=== PATIENT | female | born 2000 | race Caucasian/White ===

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

== ENCOUNTER 2022-08-03 20:19 | Inpatient (IN) | payer BC, OTHER ==
[2022-08-03] MEDS ORDERED: KETOROLAC 15 MG/ML 1 ML VIAL IVP STA (21:40)
[2022-08-03] MEDS ORDERED: METOCLOPRAMIDE 5 MG/ML 2 ML VIAL IVP STA (21:40)
[2022-08-03] MEDS ORDERED: PANTOPRAZOLE 40 MG/10 ML VIAL IVP STA (21:40)
[2022-08-03] MEDS ORDERED: SODIUM CHLORIDE 0.9% 1,000 ML IV STA ×3 (21:40→22:52)
--- NOTE | 2022-08-03 22:12 | ED ---
General Adult HPI - General Chief complaint: Abdominal Pain Stated complaint: Abd Pain, Nausea Time Seen by Provider: 08/03/22 21:35 Source: patient, RN notes reviewed, old records reviewed Mode of arrival: ambulatory Limitations: no limitations - History of Present Illness Initial comments: Patient is a 22-year-old female who presents emergency Department over concern for abdominal pain. She is also noticed some chills. Endorses nausea but no emesis or diarrhea. Denies constipation. Denies any urinary complaints. Denies any vaginal discharge or bleeding. Denies any chest pain, shortness of breath. Denies any coughing, nasal congestion, sore throat. States last time she had these symptoms, she had a partial small bowel obstruction which she was admitted to the hospital for which is why she presents today for further evaluation. Denies any history of abdominal surgeries. Presents for further evaluation at this time. Describes the pain as sharp, and located epigastrically and somewhat periumbilically. Intermittent. No radiation. No history of alcohol abuse, marijuana abuse. - Related Data Previous Rx's Medication Instructions Recorded Ondansetron [Zofran] 4 mg PO Q8HR PRN #5 tab 11/25/13 Ondansetron Odt [Zofran Odt] 4 mg PO Q8HR PRN #12 tab 11/19/17 Allergies Allergy/AdvReac Type Severity Reaction Status Date / Time No Known Allergies Allergy Verified 08/03/22 21:19 Review of Systems ROS Statement: Those systems with pertinent positive or pertinent negative responses have been documented in the HPI. Review of Systems: CONST: Denies fever EYES: Denies blurry vision ENT: Denies nasal congestion C/V: Denies Chest pain RESP: Denies shortness of breath GI: Endorses abdominal pain : Denies dysuria SKIN: Denies rash. MSK: Denies joint pain. NEURO: Denies headache ROS Other: All systems not noted in ROS Statement are negative. Past Medical History Past Medical History: No Reported History History of Any Multi-Drug Resistant Organisms: None Reported Past Surgical History: No Surgical Hx Reported Past Psychological History: Depression Smoking Status: Never smoker Past Alcohol Use History: None Reported Past Drug Use History: None Reported General Exam - General Exam Comments Initial Comments: General: Appears in mild discomfort. HEAD: Normal with no signs of head trauma. EYES: PERRLA, EOMI, conjunctiva normal, no discharge. ENT: Hearing grossly intact, normal oropharynx. RESPIRATORY: Clear breath sounds bilaterally. No wheezes, rales, or rhonchi. C/V: Regular rate and rhythm. S1 and S2 auscultated, peripheral pulses 2+ and intact throughout ABD: Abdomen is soft, nondistended. Minimally tender to palpation in the epigastric region. No guarding. No rebound tenderness. No peritoneal signs. No flank pain. No CVA tenderness to percussion. EXT: Normal range of motion, no obvious deformity SKIN: No rashes or lesions observed on exposed skin. NEURO: Alert and oriented 4. Limitations: no limitations Course Vital Signs 08/03/22 08/04/22 08/04/22 21:15 01:00 04:34 Temperature 98.5 F 97.9 F Pulse Rate 134 H 102 H 99 Respiratory 20 16 16 Rate Blood Pressure 131/83 134/87 129/82 O2 Sat by Pulse 96 97 99 Oximetry Procedures - Sepsis Sepsis Focused Exam #1 Time Sepsis Criteria Met: 22:50 Sepsis Focused Exam Date: 08/04/22 Sepsis Focused Exam Time: 02:30 Sepsis Focused Exam Complete: Yes Vital Signs & RN Notes Reviewed: Yes Capillary Refill: > 2 Seconds: Fingers, Toes Peripheral Pulses: Normal: Radial (R), Radial (L) Skin Color: Normal for Patient Respiratory Exam: normal lung sounds Cardiovascular Exam: regular rate, normal rhythm Medical Decision Making - Medical Decision Making Was pt. sent in by a medical professional or institution (, PA, STRADDLE TRUCK DRIVER, urgent care, hospital, or [facility]...) When possible be specific @ -No Did you speak to anyone other than the patient for history (EMS, parent, family, police, friend...)? What history was obtained from this source @ -No Did you review nursing and triage notes (agree or disagree)? Why? @ -I reviewed and agree with nursing and triage notes Were old charts reviewed (outside hosp., previous admission, EMS record, old EKG, old radiological studies, urgent care reports/EKG's, [facility] records)? Report findings @ -No old charts were reviewed Differential Diagnosis (chest pain, altered mental status, abdominal pain women, abdominal pain men, vaginal bleeding, weakness, fever, dyspnea, syncope, headache, dizziness, GI bleed, back pain, seizure, CVA, palpatations, mental health, musculoskeletal)? @ -Differential Abdominal Pain Women: Appendicitis, Cholecystitis, diverticulosis, ischemic bowel, pancreatitis, hepatitis, UTI, gastroenteritis, AAA, incarcerated hernia, bowel obstruction, constipation, inflammatory bowel, hepatitis, peptic ulcer disease, splenic infarction, perforated viscus, vulvitis, ovarian torsion, PID, kidney stone, placenta abruption, this is not meant to be an all-inclusive list EKG interpreted by me (3pts min.). @ -None done X-rays interpreted by me (1pt min.). @ -None done CT interpreted by me (1pt min.). @ -CT imaging shows enteritis but no other obvious process. U/S interpreted by me (1pt. min.). @ -None done What testing was considered but not performed or refused? (CT, X-rays, U/S, labs)? Why? @ -None What meds were considered but not given or refused? Why? @ -None Did you discuss the management of the patient with other professionals (professionals i.e. , PA, STRADDLE TRUCK DRIVER, lab, RT, psych nurse, psychosocial rehabilitation counselor, reeling and tubing machine operator, teacher, parole hearing officer, child welfare caseworker)? Give summary @ -Discussed with Dr. Lama who accepted the patient. Requested I consult Dr. Samuels of infectious disease. Was smoking cessation discussed for >3mins.? @ -No Was critical care preformed (if so, how long)? @ -Yes, 37 minutes. Were there social determinants of health that impacted care today? How? (Homelessness, low income, unemployed, alcoholism, drug addiction, transportation, low edu. Level, literacy, decrease access to med. care, [facility], rehab)? @ -No Was there de-escalation of care discussed even if they declined (Discuss DNR or withdrawal of care, Hospice)? DNR status @ -No What co-morbidities impacted this encounter? (DM, HTN, Smoking, COPD, CAD, Cancer, CVA, ARF, Chemo, Hep., AIDS, mental health diagnosis, sleep apnea, morbid obesity)? @ -History of partial small bowel obstruction Was patient admitted / discharged? Hospital course, mention meds given and route, prescriptions, significant lab abnormalities, going to OR and other pertinent info. @ -Based on the patient's presentation and physical exam, we will obtain abdominal laboratory studies as well as CT abdomen and pelvis considering her history of partial small bowel obstruction. She was in agreement this plan. She'll be symptomatically treated with IV fluids, Toradol, Reglan, Protonix. Vital signs within acceptable limits. Patient's imaging returned remarkable for enteritis. Patient's labs show a leukocytosis of 18.2. Patient has a lactic acidosis of 5.2. Remainder of the labs are within acceptable limits. No obvious source of infection. Blood cultures will be obtained and sent. Patient met sepsis criteria at 2250. Vanc omycin and Zosyn were ordered for the patient and she was given an additional 1 L fluid bolus as well as started on maintenance fluids at 1:30 an hour. I spoke with the patient and updated her on the results. She will be admitted. She was in agreement with the plan. Vital signs remained within acceptable limits. I spoke with Dr. Lama, who accepted the admission. Requested a consult be placed to Dr. Samuels which was completed. Undiagnosed new problem with uncertain prognosis? @ -No Drug Therapy requiring intensive monitoring for toxicity (Heparin, Nitro, Insulin, Cardizem)? @ -No Were any procedures done? @ -No Diagnosis/symptom? @ -Abdominal pain, sepsis, enteritis Acute, or Chronic, or Acute on Chronic? @ -Acute Uncomplicated (without systemic symptoms) or Complicated (systemic symptoms)? @ -Complicated Side effects of treatment? @ -none Exacerbation, Progression, or Severe Exacerbation] @ -no Poses a threat to life or bodily function? @ -yes - Lab Data Result diagrams: 08/03/22 22:12 08/03/22 22:12 Lab Results 08/03/22 08/03/22 08/03/22 Range/Units 22:12 22:12 22:12 WBC 18.2 H (4.0-11.0) k/uL RBC 5.07 (3.80-5.40) m/uL Hgb 14.3 (11.4-16.0) gm/dL Hct 44.4 (34.0-46.0) % MCV 87.7 (80.0-100.0) fL MCH 28.3 (25.0-35.0) pg MCHC 32.3 (31.0-37.0) g/dL RDW 13.6 (11.5-15.5) % Plt Count 406 (150-450) k/uL MPV 7.0 Neutrophils % 86 % Lymphocytes % 9 % Monocytes % 4 % Eosinophils % 0 % Basophils % 0 % Neutrophils # 15.7 H (1.3-7.7) k/uL Lymphocytes # 1.6 (1.0-4.8) k/uL Monocytes # 0.7 (0-1.0) k/uL Eosinophils # 0.1 (0-0.7) k/uL Basophils # 0.0 (0-0.2) k/uL PT 10.0 (9.0-12.0) sec INR 0.9 (<1.2) APTT 20.5 L (22.0-30.0) sec Sodium (137-145) mmol/L Potassium (3.5-5.1) mmol/L Chloride (98-107) mmol/L Carbon Dioxide (22-30) mmol/L Anion Gap mmol/L BUN (7-17) mg/dL Creatinine (0.52-1.04) mg/dL Est GFR (CKD-EPI)AfAm (>60 ml/min/1.73 sqM) Est GFR (CKD-EPI)NonAf (>60 ml/min/1.73 sqM) Glucose (74-99) mg/dL Lactic Ac Sepsis Rflx Plasma Lactic Acid David (0.7-2.0) mmol/L Calcium (8.4-10.2) mg/dL Total Bilirubin (0.2-1.3) mg/dL AST (14-36) U/L ALT (4-34) U/L Alkaline Phosphatase (38-126) U/L Total Protein (6.3-8.2) g/dL Albumin (3.5-5.0) g/dL Amylase (30-110) U/L Lipase (23-300) U/L HCG, Qual Urine Color Yellow Urine Appearance Clear (Clear) Urine pH 5.5 (5.0-8.0) Ur Specific Lantry 1.024 (1.001-1.035) Urine Protein Negative (Negative) Urine Glucose (UA) Negative (Negative) Urine Ketones 1+ H (Negative) Urine Blood Small H (Negative) Urine Nitrite Negative (Negative) Urine Bilirubin Negative (Negative) Urine Urobilinogen <2.0 (<2.0) mg/dL Ur Leukocyte Esterase Negative (Negative) Urine RBC 1 (0-5) /hpf Urine WBC 1 (0-5) /hpf Ur Squamous Epith Cells 1 (0-4) /hpf Urine Bacteria Rare H (None) /hpf Hyaline Casts 1 (0-2) /lpf Urine Mucus Occasional H (None) /hpf 08/03/22 08/03/22 08/03/22 Range/Units 22:12 22:12 22:43 WBC (4.0-11.0) k/uL RBC (3.80-5.40) m/uL Hgb (11.4-16.0) gm/dL Hct (34.0-46.0) % MCV (80.0-100.0) fL MCH (25.0-35.0) pg MCHC (31.0-37.0) g/dL RDW (11.5-15.5) % Plt Count (150-450) k/uL MPV Neutrophils % % Lymphocytes % % Monocytes % % Eosinophils % % Basophils % % Neutrophils # (1.3-7.7) k/uL Lymphocytes # (1.0-4.8) k/uL Monocytes # (0-1.0) k/uL Eosinophils # (0-0.7) k/uL Basophils # (0-0.2) k/uL PT (9.0-12.0) sec INR (<1.2) APTT (22.0-30.0) sec Sodium 140 (137-145) mmol/L Potassium 3.8 (3.5-5.1) mmol/L Chloride 102 (98-107) mmol/L Carbon Dioxide 19 L (22-30) mmol/L Anion Gap 19 mmol/L BUN 10 (7-17) mg/dL Creatinine 0.65 (0.52-1.04) mg/dL Est GFR (CKD-EPI)AfAm >90 (>60 ml/min/1.73 sqM) Est GFR (CKD-EPI)NonAf >90 (>60 ml/min/1.73 sqM) Glucose 108 H (74-99) mg/dL Lactic Ac Sepsis Rflx Y Plasma Lactic Acid David 5.2 H* (0.7-2.0) mmol/L Calcium 10.1 (8.4-10.2) mg/dL Total Bilirubin 0.4 (0.2-1.3) mg/dL AST 32 (14-36) U/L ALT 37 H (4-34) U/L Alkaline Phosphatase 129 H (38-126) U/L Total Protein 8.0 (6.3-8.2) g/dL Albumin 4.6 (3.5-5.0) g/dL Amylase 46 (30-110) U/L Lipase 67 (23-300) U/L HCG, Qual Not Detected Urine Color Urine Appearance (Clear) Urine pH (5.0-8.0) Ur Specific Lantry (1.001-1.035) Urine Protein (Negative) Urine Glucose (UA) (Negative) Urine Ketones (Negative) Urine Blood (Negative) Urine Nitrite (Negative) Urine Bilirubin (Negative) Urine Urobilinogen (<2.0) mg/dL Ur Leukocyte Esterase (Negative) Urine RBC (0-5) /hpf Urine WBC (0-5) /hpf Ur Squamous Epith Cells (0-4) /hpf Urine Bacteria (None) /hpf Hyaline Casts (0-2) /lpf Urine Mucus (None) /hpf Disposition Clinical Impression: Sepsis, Enteritis, Abdominal pain Disposition: ADMITTED IP TO THIS HOSP Condition: Serious Time of Disposition: 23:50
[2022-08-03 22:25] LABS: Basophils % (A) 0 %; Eosinophils # (A) 0.1 k/uL (0-0.7); Eosinophils % (A) 0 %; HCT 44.4 % (34.0-46.0); HGB 14.3 gm/dL (11.4-16.0); Lymphocytes # (A) 1.6 k/uL (1.0-4.8); Lymphocytes % (A) 9 %; MCH 28.3 pg (25.0-35.0); MCHC 32.3 g/dL (31.0-37.0); MCV 87.7 fL (80.0-100.0); Monocytes # (A) 0.7 k/uL (0-1.0); Monocytes % (A) 4 %; Neutrophils # (A) 15.7 k/uL (1.3-7.7); Neutrophils % (A) 86 %; Platelet Count 406 k/uL (150-450); RBC 5.07 m/uL (3.80-5.40); RDW 13.6 % (11.5-15.5); WBC 18.2 k/uL (4.0-11.0)
[2022-08-03 22:37] LABS: AST 32 U/L (14-36); African American GFR (CKD) >90 (>60 ml/min/1.73 sqM); Albumin 4.6 g/dL (3.5-5.0); Alkaline Phosphatase 129 U/L (38-126); Amylase 46 U/L (30-110); Anion Gap 19 mmol/L; Appearance,Urine Clear (Clear); Bacteria,Urine Rare /hpf; Bilirubin,Urine Negative (Negative); Blood Urea Nitrogen 10 mg/dL (7-17); Blood,Urine Small (Negative); Calcium 10.1 mg/dL (8.4-10.2); Carbon Dioxide 19 mmol/L (22-30); Chloride 102 mmol/L (98-107); Color,Urine Yellow; Glucose 108 mg/dL (74-99); Glucose,Urine (UA) Negative (Negative); Hyaline Casts,Urine 1 /lpf (0-2); Ketones,Urine 1+ (Negative); Leukocyte Esterase,Urine Negative (Negative); Lipase 67 U/L (23-300); Mucus,Urine Occasional /hpf; Nitrite,Urine Negative (Negative); Non-African American GFR(CKD) >90 (>60 ml/min/1.73 sqM); PH, Urine 5.5 (5.0-8.0); Potassium 3.8 mmol/L (3.5-5.1); Protein,Urine Negative (Negative); RBC,Urine 1 /hpf (0-5); Sodium 140 mmol/L (137-145); Specific Gravity,Urine 1.024 (1.001-1.035); Squamous Epithelial Cell,Urine 1 /hpf (0-4); Total Bilirubin 0.4 mg/dL (0.2-1.3); Urobilinogen,Urine <2.0 mg/dL (<2.0); WBC,Urine 1 /hpf (0-5)
[2022-08-03 22:38] LABS: HCG,Qualitative Serum Not Detected
[2022-08-03 22:39] LABS: INR 0.9 (<1.2)
[2022-08-03 22:41] LABS: Partial Thromboplastin Time 20.5 sec (22.0-30.0)
[2022-08-03 22:44] LABS: ALT 37 U/L (4-34)
[2022-08-03] MEDS ORDERED: VANCOMYCIN IV PER PHARMACY 1 EACH MISC MISCELLANE PRN (22:52)
[2022-08-03] MEDS ORDERED: PIPERACILLIN-TAZOBACTAM 3.375 GM in SODIUM CHLORIDE 0.9% 100 ML IVPB STA (22:54)
[2022-08-03] MEDS ORDERED: VANCOMYCIN 1,750 MG in SODIUM CHLORIDE 0.9% 500 ML 500 ML IVPB STA (22:57)
--- NOTE | 2022-08-03 23:49 | CT ---
EXAMINATION TYPE: CT angio abdomen pelvis CT DLP: 1824.3 mGycm, Automated exposure control for dose reduction was used. DATE OF EXAM: 08/03/2022 11:25 PM COMPARISON: None. . CLINICAL INDICATION:Female, 22 years old with history of eval for ischemic bowel/abd pain; H, EVAL FOR ISCHEMIC BOWEL/ABD PAIN TECHNIQUE: Multiple thin slice sub-millimeter images were obtained through the abdomen, pelvis, and l ower extremities after administration of contrast. 3-D reconstructed images and maximum intensity pr ojection images were obtained of the abdomen, pelvis, and lower extremities. CT Contrast: Contrast used:100ML mL of Isovue 370 with IV Contrast, Oral contrast used: without Oral Contrast None FINDINGS: CTA Abdomen and pelvis: The abdominal aorta does not demonstrate aneurysmal dilatation. The origins of the superior mesenteric artery, renal arteries, inferior mesenteric artery, and celiac axis are pa tent. The iliac vessels are normal in morphology. No intramural hematoma on noncontrast imaging. Sup erior mesenteric artery extending to an area of bowel wall thickening mentioned below appears patent. No portal venous gas visualized. LOWER CHEST: No evidence of focal consolidation, pneumothorax or pleural effusion. LIVER: Unremarkable GALLBLADDER AND BILE DUCTS: Unremarkable. PANCREAS: Unremarkable. SPLEEN: Unremarkable. ADRENAL GLANDS: Unremarkable. KIDNEYS AND URETERS: No evidence of hydronephrosis or renal calculus. The ureters are unremarkable. PELVIS BLADDER: Unremarkable REPRODUCTIVE: Unremarkable. ABDOMEN & PELVIS STOMACH AND BOWEL: Mild engorgement of the small bowel mesentery vessels with somewhat thickened appe arance of the small bowel gil. Prominent mesenteric lymph nodes are also present. The vascular supp ly to the vessels appears patent. There is no evidence of pneumatosis. There is a large stool burden throughout the sigmoid colon. No evidence of bowel obstruction. The appendix is visualized and normal . PERITONEUM: Trace fluid is seen within the pelvis, no evidence of pneumoperitoneum. MUSCULOSKELETAL: No acute osseous abnormalities LYMPH NODES: No gross evidence for lymphadenopathy. SOFT TISSUE/ABDOMINAL WALL: Unremarkable IMPRESSION 1. There is mild circumferential wall thickening and hyperemia of the small bowel No evidence of obs truction. Correlate for enteritis. No evidence for pneumatosis or portal venous gas to suggest ischem ic colitis. 2. No evidence for aortic dissection or aneurysm,
[2022-08-04] MEDS ORDERED: NALOXONE 0.4 MG/ML 1 ML VIAL IV PRN (00:12)
[2022-08-04] MEDS ORDERED: ONDANSETRON 4 MG/2 ML VIAL IVP PRN (00:14)
[2022-08-04] MEDS ORDERED: VANCOMYCIN 1,750 MG in SODIUM CHLORIDE 0.9% 500 ML 500 ML IVPB SCH (08:00)
[2022-08-04] MEDS: PIPERACILLIN-TAZOBACTAM 3.375 GM in SODIUM CHLORIDE 0.9% 100 ML IVPB SCH ×2 (08:56→16:27)
[2022-08-04] MEDS: SODIUM CHLORIDE 0.9% 1,000 ML IV SCH ×3 (08:57→20:36)
[2022-08-04] MEDS: HEPARIN SODIUM,PORCINE/PF 5,000 UNIT/0.5 ML SYRINGE SQ SCH ×3 (08:57→20:39)
--- NOTE | 2022-08-04 13:31 | P.CONS ---
History of Present Illness - Reason for Consult Consult date: 08/04/22 - History of Present Illness Patient is a 22-year-old female with no significant past medical history presenting to the ER last night for evaluation of abdominal pain the patient the patient symptoms started the morning of presentation the hospital has been mostly epigastric area describing it to be sharp almost 7- 8 out of 10 no radiation felt nauseated but no vomiting and denies having any diarrhea patient mention she did have some chills denies high-grade fever with the same to the patient present to the hospital on arrival to the ER patient was afebrile and no fever has been recorded subsequently patient did have elevated lactic acid 2.8 white count was 18.2 patient did have elevated lactic acid 2.8 white count was 18.2 AST was mildly elevated creatinine was normal patient did patient did have a abdominal pelvis CTA mild circumferential wall thickening and hyperemia of the small bowel no evidence of obstruction correlate for enteritis patient was started on vancomycin and Zosyn infectious diseases was consulted for further management of antibiotic therapy Past Medical History Past Medical History: No Reported History History of Any Multi-Drug Resistant Organisms: None Reported Past Surgical History: No Surgical Hx Reported Past Psychological History: Depression Smoking Status: Never smoker Past Alcohol Use History: None Reported Past Drug Use History: None Reported Medications and Allergies Home Medications Medication Instructions Recorded Confirmed Type Escitalopram [Lexapro] 20 mg PO HS 08/04/22 08/04/22 History Linette Fe 03/19 1 tab PO HS 08/04/22 08/04/22 History Prazosin HCl 2 mg PO HS 08/04/22 08/04/22 History QUEtiapine [SEROquel] 200 mg PO HS 08/04/22 08/04/22 History Allergies Allergy/AdvReac Type Severity Reaction Status Date / Time No Known Allergies Allergy Verified 08/04/22 06:53 Physical Exam Vitals: Vital Signs Temp Pulse Pulse Resp BP BP Pulse Ox 08/04/22 08:05 97.8 F 101 H 16 118/80 99 08/04/22 07:50 96 18 114/73 98 08/04/22 06:26 98.3 F 101 H 16 110/74 100 08/04/22 04:34 99 16 129/82 99 08/04/22 01:00 97.9 F 102 H 16 134/87 97 08/03/22 21:15 98.5 F 134 H 20 131/83 96 Intake and Output 08/03/22 08/04/22 08/04/22 22:59 06:59 14:59 Other: Weight 108.862 kg 108.862 kg Results CBC & Chem 7: 08/03/22 22:12 08/03/22 22:12 Labs: Abnormal Lab Results - Last 24 Hours (Table) 08/03/22 08/03/22 08/03/22 Range/Units 22:12 22:12 22:12 WBC 18.2 H (4.0-11.0) k/uL Neutrophils # 15.7 H (1.3-7.7) k/uL APTT 20.5 L (22.0-30.0) sec Carbon Dioxide (22-30) mmol/L Glucose (74-99) mg/dL Plasma Lactic Acid David (0.7-2.0) mmol/L ALT (4-34) U/L Alkaline Phosphatase (38-126) U/L Urine Ketones 1+ H (Negative) Urine Blood Small H (Negative) Urine Bacteria Rare H (None) /hpf Urine Mucus Occasional H (None) /hpf 08/03/22 08/03/22 08/04/22 Range/Units 22:12 22:12 01:40 WBC (4.0-11.0) k/uL Neutrophils # (1.3-7.7) k/uL APTT (22.0-30.0) sec Carbon Dioxide 19 L (22-30) mmol/L Glucose 108 H (74-99) mg/dL Plasma Lactic Acid David 5.2 H* 3.1 H* (0.7-2.0) mmol/L ALT 37 H (4-34) U/L Alkaline Phosphatase 129 H (38-126) U/L Urine Ketones (Negative) Urine Blood (Negative) Urine Bacteria (None) /hpf Urine Mucus (None) /hpf 08/04/22 08/04/22 Range/Units 05:02 07:40 WBC (4.0-11.0) k/uL Neutrophils # (1.3-7.7) k/uL APTT (22.0-30.0) sec Carbon Dioxide (22-30) mmol/L Glucose (74-99) mg/dL Plasma Lactic Acid David 2.8 H* 2.2 H* (0.7-2.0) mmol/L ALT (4-34) U/L Alkaline Phosphatase (38-126) U/L Urine Ketones (Negative) Urine Blood (Negative) Urine Bacteria (None) /hpf Urine Mucus (None) /hpf Assessment and Plan Plan: 1patient is in the hospital with abdominal pain and nausea but no vomiting patient did not have any fever however did have elevated lactic acid and elevated white count CT abdominal pelvis concern for possible enteritis, we'll need to cover for the enteric gram-negative with a likely pathogen 2continue Zosyn however discontinue vancomycin 3-stool culture if the patient has any loose stools We will follow on clinical condition and cultures to further adjust medication if needed Thank you for this consultation will follow this patient with you Time with Patient: Greater than 30
--- NOTE | 2022-08-04 14:31 | HP ---
HISTORY AND PHYSICAL HISTORY OF PRESENT ILLNESS: This is a 22-year-old white female who came to the ER for abdominal pain, presenting, mostly epigastric 09/06. She has some colitis on CAT scan. She was admitted due to lactic acidosis and white count was 18.2, elevated creatinine for prerenal azotemia. CT was reviewed. Home medications reviewed. REVIEW OF SYSTEMS: A 14-point review of systems otherwise negative. PAST PSYCHIATRIC HISTORY: Depression. MEDICATIONS AT HOME: 1. Lexapro 20 daily. 2. Prazosin 2 mg at night. 3. daily. 4. Seroquel 200 at night. ALLERGIES: Negative. PHYSICAL EXAMINATION: VITAL SIGNS: Temperature 98.4, pulse is in low 100s, blood pressure 110 to 130s over 70s to 80s, respiratory rate 16 to 20, and blood pressure 99/100. CARDIOVASCULAR: S1, S2. LUNGS: Clear. GI: Soft. Mild tenderness in epigastric area. HEMATOLOGY: Negative Homans. PSYCH: Fair mood and affect. NEUROLOGIC: Alert and oriented x3. CAT scan reviewed. ASSESSMENT: Leukocytosis, lactic acidosis, possible colitis, possible enteritis versus colitis, gram-negative with leukocytosis. Start Zosyn. Wait for cultures to come back of the stools. Get surgical consult for abdominal pain. PROGNOSIS: Extremely guarded. MMODL / IJN: [id number] /
[2022-08-04] MEDS: ACETAMINOPHEN TAB 325 MG TAB PO PRN (15:13)
--- NOTE | 2022-08-04 15:39 | P.GSCN ---
History of Present Illness Consult date: 08/04/22 History of present illness: CHIEF COMPLAINT: Abdominal pain HISTORY OF PRESENT ILLNESS: This is a 22-year-old female who presented to the hospital with upper abdominal pain with nausea that started yesterday morning. She reports having similar symptoms a couple months ago and a year ago. She reports she was at [facility] for short period of time. She denies any diarrhea or constipation. Denies any recent traveling or sick contacts. Denies any fever chills or sweats. She has been able to eat. She denies any prior abdominal surgeries. She did have elevated white count lactic acid she's been tachycardic and hypotensive. She's given fluids and started on antibiotics. She is followed by infectious disease. Computed tomography scan had shown mild circumferential wall thickening and hyperemia of the small bowel. No evidence of obstruction. Correlate for enteritis. She denies any urinary symptoms. Denies any vaginal discharge. PAST MEDICAL HISTORY: See below PAST SURGICAL HISTORY: See below MEDICATIONS: See below ALLERGIES: See below SOCIAL HISTORY: No illicit drug use. REVIEW OF SYSTEMS: CONSTITUTIONAL: Denies fever or chills. HEENT: Denies blurred vision, vision changes, or eye pain. Denies hemoptysis CARDIOVASCULAR: Denies chest pain or pressure. RESPIRATORY: No shortness of breath. GASTROINTESTINAL: See HPI for pertinent findings HEMATOLOGIC: Denies bleeding disorders. GENITOURINARY: Denies any blood in urine or increased urinary frequency. SKIN: Denies pruitis. Denies rash. PHYSICAL EXAM: VITAL SIGNS: Reviewed GENERAL: Well-developed in no acute distress. HEENT: No sclera icterus. Extraocular movements grossly intact. Moist buccal mucosa. Head is atraumatic, normocephalic. No nasal drainage. ABDOMEN: Soft. Nondistended. Tenderness to palpation of mid upper abdomen NEUROLOGIC: Alert and oriented. Cranial nerves II through XII grossly intact. LABORATORY DATA: WBC 18.2 Hgb 14.3 platelets 406 Sodium is 140 potassium 3.8 creatinine 0.65 Lactic acid 5.2 down to 1.3 AST 32 ALT 37 alk phos 129 lipase 67 Urinalysis negative for infection IMAGING: Abdomen and pelvis CT as stated above ASSESSMENT: 1. Abdominal pain and nausea likely due to a gastroenteritis PLAN: -Continue to monitor -No surgical intervention planned -Continue antibiotics per infectious disease -Continue IV fluids -Continue regular diet Thank you for this consultation Physician Die Out Worker note has been reviewed by physician. Signing provider agrees with the documented findings, assessment, and plan of care. Past Medical History Past Medical History: No Reported History History of Any Multi-Drug Resistant Organisms: None Reported Past Surgical History: No Surgical Hx Reported Past Psychological History: Depression Smoking Status: Never smoker Past Alcohol Use History: None Reported Past Drug Use History: None Reported Medications and Allergies Home Medications Medication Instructions Recorded Confirmed Type Escitalopram [Lexapro] 20 mg PO HS 08/04/22 08/04/22 History Linette Fe 03/19 1 tab PO 08/04/22 08/04/22 History Prazosin HCl 2 mg PO HS 08/04/22 08/04/22 History QUEtiapine [SEROquel] 200 mg PO HS 08/04/22 08/04/22 History Allergies Allergy/AdvReac Type Severity Reaction Status Date / Time No Known Allergies Allergy Verified 08/04/22 06:53 Surgical - Exam Vital Signs Temp Pulse Resp BP Pulse Ox 98.5 F 134 H 20 131/83 96 08/03/22 21:15 08/03/22 21:15 08/03/22 21:15 08/03/22 21:15 08/03/22 21:15 Results - Labs 08/03/22 22:12 08/03/22 22:12 Abnormal Lab Results - Last 24 Hours (Table) 08/03/22 08/03/22 08/03/22 Range/Units 22:12 22:12 22:12 WBC 18.2 H (4.0-11.0) k/uL Neutrophils # 15.7 H (1.3-7.7) k/uL APTT 20.5 L (22.0-30.0) sec Carbon Dioxide (22-30) mmol/L Glucose (74-99) mg/dL Plasma Lactic Acid David (0.7-2.0) mmol/L ALT (4-34) U/L Alkaline Phosphatase (38-126) U/L Urine Ketones 1+ H (Negative) Urine Blood Small H (Negative) Urine Bacteria Rare H (None) /hpf Urine Mucus Occasional H (None) /hpf 08/03/22 08/03/22 08/04/22 Range/Units 22:12 22:12 01:40 WBC (4.0-11.0) k/uL Neutrophils # (1.3-7.7) k/uL APTT (22.0-30.0) sec Carbon Dioxide 19 L (22-30) mmol/L Glucose 108 H (74-99) mg/dL Plasma Lactic Acid David 5.2 H* 3.1 H* (0.7-2.0) mmol/L ALT 37 H (4-34) U/L Alkaline Phosphatase 129 H (38-126) U/L Urine Ketones (Negative) Urine Blood (Negative) Urine Bacteria (None) /hpf Urine Mucus (None) /hpf 08/04/22 08/04/22 Range/Units 05:02 07:40 WBC (4.0-11.0) k/uL Neutrophils # (1.3-7.7) k/uL APTT (22.0-30.0) sec Carbon Dioxide (22-30) mmol/L Glucose (74-99) mg/dL Plasma Lactic Acid David 2.8 H* 2.2 H* (0.7-2.0) mmol/L ALT (4-34) U/L Alkaline Phosphatase (38-126) U/L Urine Ketones (Negative) Urine Blood (Negative) Urine Bacteria (None) /hpf Urine Mucus (None) /hpf Diabetes panel 08/03/22 Range/Units 22:12 Sodium 140 (137-145) mmol/L Potassium 3.8 (3.5-5.1) mmol/L Chloride 102 (98-107) mmol/L Carbon Dioxide 19 L (22-30) mmol/L BUN 10 (7-17) mg/dL Creatinine 0.65 (0.52-1.04) mg/dL Glucose 108 H (74-99) mg/dL Calcium 10.1 (8.4-10.2) mg/dL AST 32 (14-36) U/L ALT 37 H (4-34) U/L Alkaline Phosphatase 129 H (38-126) U/L Total Protein 8.0 (6.3-8.2) g/dL Albumin 4.6 (3.5-5.0) g/dL Calcium panel 08/03/22 Range/Units 22:12 Calcium 10.1 (8.4-10.2) mg/dL Albumin 4.6 (3.5-5.0) g/dL Pituitary panel 08/03/22 Range/Units 22:12 Sodium 140 (137-145) mmol/L Potassium 3.8 (3.5-5.1) mmol/L Chloride 102 (98-107) mmol/L Carbon Dioxide 19 L (22-30) mmol/L BUN 10 (7-17) mg/dL Creatinine 0.65 (0.52-1.04) mg/dL Glucose 108 H (74-99) mg/dL Calcium 10.1 (8.4-10.2) mg/dL Adrenal panel 08/03/22 Range/Units 22:12 Sodium 140 (137-145) mmol/L Potassium 3.8 (3.5-5.1) mmol/L Chloride 102 (98-107) mmol/L Carbon Dioxide 19 L (22-30) mmol/L BUN 10 (7-17) mg/dL Creatinine 0.65 (0.52-1.04) mg/dL Glucose 108 H (74-99) mg/dL Calcium 10.1 (8.4-10.2) mg/dL Total Bilirubin 0.4 (0.2-1.3) mg/dL AST 32 (14-36) U/L ALT 37 H (4-34) U/L Alkaline Phosphatase 129 H (38-126) U/L Total Protein 8.0 (6.3-8.2) g/dL Albumin 4.6 (3.5-5.0) g/dL
[2022-08-04] MEDS: ESCITALOPRAM 20 MG TAB PO SCH (20:37)
[2022-08-04] MEDS: PRAZOSIN 1 MG CAP PO SCH (20:37)
[2022-08-04] MEDS: QUEtiapine 200 MG TAB PO SCH (20:37)
[2022-08-04] MEDS: HAILEY FE PO SCH (20:38)
[2022-08-04] MEDS ORDERED: HAILEY FE PO SCH (21:00)
[2022-08-05] MEDS: PIPERACILLIN-TAZOBACTAM 3.375 GM in SODIUM CHLORIDE 0.9% 100 ML IVPB SCH ×3 (00:45→16:35)
[2022-08-05] MEDS: SODIUM CHLORIDE 0.9% 1,000 ML IV SCH ×2 (06:05→17:23)
[2022-08-05 06:35] LABS: Basophils % (A) 0 %; Eosinophils # (A) 0.1 k/uL (0-0.7); Eosinophils % (A) 1 %; HCT 35.7 % (34.0-46.0); HGB 11.6 gm/dL (11.4-16.0); Lymphocytes # (A) 3.1 k/uL (1.0-4.8); Lymphocytes % (A) 36 %; MCH 28.9 pg (25.0-35.0); MCHC 32.5 g/dL (31.0-37.0); MCV 88.9 fL (80.0-100.0); Mean Platelet Volume 7.4; Monocytes # (A) 0.5 k/uL (0-1.0); Monocytes % (A) 6 %; Neutrophils # (A) 4.5 k/uL (1.3-7.7); Neutrophils % (A) 54 %; Platelet Count 323 k/uL (150-450); RBC 4.02 m/uL (3.80-5.40); RDW 13.7 % (11.5-15.5); WBC 8.4 k/uL (4.0-11.0)
[2022-08-05 06:51] LABS: ALT 18 U/L (4-34); AST 22 U/L (14-36); African American GFR (CKD) >90 (>60 ml/min/1.73 sqM); Albumin 3.1 g/dL (3.5-5.0); Albumin/Globulin Ratio 1.2; Alkaline Phosphatase 70 U/L (38-126); Anion Gap 7 mmol/L; Blood Urea Nitrogen 8 mg/dL (7-17); Calcium 8.5 mg/dL (8.4-10.2); Carbon Dioxide 22 mmol/L (22-30); Chloride 108 mmol/L (98-107); Globulin 2.6 g/dL; Glucose 81 mg/dL (74-99); Non-African American GFR(CKD) >90 (>60 ml/min/1.73 sqM); Potassium 4.1 mmol/L (3.5-5.1); Sodium 137 mmol/L (137-145); Total Bilirubin 0.4 mg/dL (0.2-1.3); Total Protein 5.7 g/dL (6.3-8.2)
[2022-08-05] MEDS ORDERED: VANCOMYCIN TROUGH DUE 1 EACH MISC MISCELLANE ONE (07:00)
[2022-08-05] MEDS: ACETAMINOPHEN TAB 325 MG TAB PO PRN (08:00)
[2022-08-05] MEDS: HEPARIN SODIUM,PORCINE/PF 5,000 UNIT/0.5 ML SYRINGE SQ SCH ×2 (08:12→16:41)
--- NOTE | 2022-08-05 11:10 | CDI ---
Documentation Clarification Form Date: 08/05/2022 10:50:06 AM From: Lanie Rosenberg RN CCDS Phone: [phone] Admit Date: 08/04/2022 12:13:00 AM Patient Name: Olamide Plascencia Visit Number: [id number] Discharge Date: ATTENTION: The Clinical Documentation Specialists (CDI) and [facility] Coding Staff appreciate your assistance in clarifying documentation. Please respond to the clarification below the line at the bottom and electronically sign. The CDI & [facility] Coding staff will review the response and follow-up if needed. Please note: Queries are made part of the Legal Health Record. If you have any questions, please contact the author of this message via ITS. Dr. Adin Lama Sepsis is documented ED note, 08/03, but is not noted in subsequent documentation. Clarification is requested. History/Risk Factors: 22-year-old female presents to the ED with abdominal pain, mostly epigastric. Medical history: Depression Clinical Indicators: 08/03 VSS: B/P 131/83; HR 134; Temp 98.5 F Oral; RR 20; SpO2 96% room air 08/03 Labs: Wbc 18.2; Neutrophils 15.7; Lactic Acid David 5.2 08/03, CT Abd Pelvis: Mild circumferential wall thickening and hyperemia of the small bowel. Treatment: 08/03 0.9NS 1L bolus x2 followed by 0.9ns 130cc/hr; 08/03 Zoysn IVPB X1; 08/03 Vancomycin IVPB x 1; 08/04 Zosyn IVPB Q8HR; Vancomycin IVPB Q8HR d/c after one dose. Please clarify if the Sepsis is: [ ] Sepsis confirmed POA remains under treatment [ ] Sepsis confirmed POA, resolved [ ] Sepsis ruled out [ ] Other condition, please specify [ ] Unable to determine Documented in Medicine Progress note 08/[address] Garfield Crocker "Sepsis due to gastroenteritis with lactic acid of 5/2." (Template Last Revised: April 2020) MTDD
[2022-08-05] MEDS: ESCITALOPRAM 20 MG TAB PO SCH (22:13)
[2022-08-05] MEDS: QUEtiapine 200 MG TAB PO SCH (22:13)
[2022-08-05] MEDS: HAILEY FE PO SCH (22:15)
[2022-08-05] MEDS: PRAZOSIN 1 MG CAP PO SCH (22:15)
--- NOTE | 2022-08-05 22:27 | P.PN ---
Subjective Progress Note Date: 08/05/22 Principal diagnosis: leukocytosis and entritis Patient is a 22-year-old female with no significant past medical history presenting to the ER for evaluation of abdominal pain , patient was noticed to have elevated white count CT abdomen and pelvis was suggestive of enteritis. On today's evaluation that is 08/05/2022, the patient denies having any fever and chills still complaining of epigastric abdominal pain however has decreased in intensity no nausea no vomiting did have a formed bowel movement no chest pain shortness of breath or cough Objective - Vital Signs Vital signs: Vital Signs Temp 98.3 F 08/05/22 07:05 Pulse 106 H 08/05/22 07:05 Resp 16 08/05/22 07:05 BP 114/74 08/05/22 07:05 Pulse Ox 97 08/05/22 07:05 FiO2 Intake & Output 08/04/22 08/05/22 08/05/22 18:59 06:59 18:59 Weight 108.862 kg 111.6 kg Other: # Voids 2 2 1 - Exam GENERAL DESCRIPTION: Young female lying in bed in no distress RESPIRATORY SYSTEM: Unlabored breathing , decreased breath sounds at bases HEART: S1 S2 regular rate and rhythm , ABDOMEN: Soft , no tenderness EXTREMITIES: No edema feet - Labs CBC & Chem 7: 08/05/22 05:42 08/05/22 05:42 Labs: Abnormal Lab Results - Last 24 Hours (Table) 08/05/22 Range/Units 05:42 Chloride 108 H (98-107) mmol/L Total Protein 5.7 L (6.3-8.2) g/dL Albumin 3.1 L (3.5-5.0) g/dL Assessment and Plan (1) Leukocytosis Current Visit: Yes Status: Acute Code(s): D72.829 - ELEVATED WHITE BLOOD CELL COUNT, UNSPECIFIED SNOMED Code(s): 343114263 (2) Enteritis Current Visit: Yes Status: Acute Code(s): K52.9 - NONINFECTIVE GASTROENTERITIS AND COLITIS, UNSPECIFIED SNOMED Code(s): 63025079 Plan: 1patient is in the hospital with abdominal pain and nausea but no vomiting patient did not have any fever however did have elevated lactic acid and elevated white count CT abdominal pelvis concern for possible enteritis, we'll need to cover for the enteric gram-negative with a likely pathogen 2patient white count has normalized, we will continue Zosyn and monitor clinical course closely Time with Patient: Less than 30
[2022-08-06] MEDS: PIPERACILLIN-TAZOBACTAM 3.375 GM in SODIUM CHLORIDE 0.9% 100 ML IVPB SCH ×2 (00:15→08:56)
[2022-08-06] MEDS: SODIUM CHLORIDE 0.9% 1,000 ML IV SCH ×2 (00:19→13:03)
[2022-08-06] MEDS: HEPARIN SODIUM,PORCINE/PF 5,000 UNIT/0.5 ML SYRINGE SQ SCH ×2 (00:19→08:56)
--- NOTE | 2022-08-06 06:48 | P.PN ---
Progress Note - Text Progress Note Date: 08/05/22 Patient remains clinically unchanged. States her pain is improved. On exam vital signs are stable. Abdomen soft. Resolving enteritis. Patient can receive supportive care.
[2022-08-06 07:43] VITALS: RESP 14; TEMP 98.3
[2022-08-06 08:05] LABS: Basophils % (A) 0 %; Eosinophils # (A) 0.1 k/uL (0-0.7); Eosinophils % (A) 1 %; HGB 11.4 gm/dL (11.4-16.0); Lymphocytes # (A) 3.1 k/uL (1.0-4.8); Lymphocytes % (A) 37 %; MCHC 32.7 g/dL (31.0-37.0); MCV 85.6 fL (80.0-100.0); Mean Platelet Volume 6.9; Monocytes # (A) 0.4 k/uL (0-1.0); Monocytes % (A) 4 %; Neutrophils # (A) 4.8 k/uL (1.3-7.7); Neutrophils % (A) 56 %; Platelet Count 336 k/uL (150-450); RBC 4.09 m/uL (3.80-5.40); RDW 13.7 % (11.5-15.5); WBC 8.6 k/uL (4.0-11.0)
[2022-08-06 08:27] LABS: ALT 20 U/L (4-34); AST 21 U/L (14-36); African American GFR (CKD) >90 (>60 ml/min/1.73 sqM); Albumin 3.7 g/dL (3.5-5.0); Albumin/Globulin Ratio 1.4; Alkaline Phosphatase 86 U/L (38-126); Anion Gap 11 mmol/L; Blood Urea Nitrogen 9 mg/dL (7-17); Calcium 9.2 mg/dL (8.4-10.2); Carbon Dioxide 23 mmol/L (22-30); Chloride 104 mmol/L (98-107); Globulin 2.7 g/dL; Glucose 88 mg/dL (74-99); Magnesium 1.8 mg/dL (1.6-2.3); Non-African American GFR(CKD) >90 (>60 ml/min/1.73 sqM); Phosphorus 5.3 mg/dL (2.5-4.5); Potassium 3.7 mmol/L (3.5-5.1); Sodium 138 mmol/L (137-145); Total Bilirubin 0.3 mg/dL (0.2-1.3); Total Protein 6.4 g/dL (6.3-8.2)
--- NOTE | 2022-08-06 09:08 | P.PN ---
Progress Note - Text Progress Note Date: 08/06/22 Patient states she feels better. She wants to go home. On exam vital signs are stable. Abdomen soft. Resolved ileus. Patient self discharge. She'll follow-up in one week.
--- NOTE | 2022-08-06 14:05 | P.PN ---
Subjective Progress Note Date: 08/05/22 Principal diagnosis: Gastroenteritis Abdominal pain and nausea Sepsis due to gastroenteritis with a lactic acid of 5.2 Morbid obesity Major depression 08/05/2022, patient seen and evaluated examined care plan discussed with beauty sales consultant, patient came into the hospital with a few day history of nausea vomiting and not feeling well she was hypotensive and tachycardic on arrival she has elevated lactic acid and leukocytosis of 18.2 patient after admission has been rehydrated, computed tomography scan of the abdomen revealed presence of small bowel enteritis, surgical services have a lactic evaluated the patient as the infectious disease services patient has been started on home medications as well as IV Zosyn tolerating well Objective - Vital Signs Vital signs: Vital Signs Temp 98.3 F 08/05/22 07:05 Pulse 106 H 08/05/22 07:05 Resp 16 08/05/22 07:05 BP 114/74 08/05/22 07:05 Pulse Ox 97 08/05/22 07:05 FiO2 Intake & Output 08/04/22 08/05/22 08/05/22 18:59 06:59 18:59 Weight 108.862 kg 111.6 kg Other: # Voids 2 2 1 - Constitutional General appearance: Present: average body habitus, cooperative, disheveled - EENT Eyes: Present: EOMI, PERRLA ENT: Present: normal oropharynx Ears: bilateral: normal - Neck Carotids: bilateral: upstroke normal Thyroid: negative: normal size - Respiratory Respiratory: bilateral: CTA - Cardiovascular Rhythm: regular Heart sounds: normal: S1, S2 - Gastrointestinal General gastrointestinal: Present: normal bowel sounds - Integumentary Integumentary: Present: normal turgor - Neurologic Neurologic: Present: CNII-XII intact, focal deficits - Musculoskeletal Musculoskeletal: Present: gait normal, generalized weakness, strength equal bilaterally - Psychiatric Psychiatric: Present: A&O x's 3, appropriate affect, intact judgment & insight - Labs CBC & Chem 7: 08/06/22 07:25 08/06/22 07:25 Labs: Abnormal Lab Results - Last 24 Hours (Table) 08/05/22 Range/Units 05:42 Chloride 108 H (98-107) mmol/L Total Protein 5.7 L (6.3-8.2) g/dL Albumin 3.1 L (3.5-5.0) g/dL - Imaging and Cardiology CT scan - abdomen: report reviewed Assessment and Plan Assessment: Gastroenteritis Abdominal pain and nausea Sepsis due to gastroenteritis with a lactic acid of 5.2 Morbid obesity Major depression Plan: Continue IV fluids Continue home medications Monitor electrolytes closely Continue antibiotics Continued DVT prophylaxis Further plan of care as per clinical response of the patient Time with Patient: Greater than 30
--- NOTE | 2022-08-06 14:08 | P.DS ---
Providers Date of admission: 08/04/22 00:13 Expected date of discharge: 08/06/22 Attending physician: Adin Lama Consults: 08/04/22 00:12 Consult Physician Routine Consulting Provider: Rae Samuels Consult Reason/Comments: sepsis, enteritis Do you want consulting provider notified?: Yes 08/04/22 13:45 Consult Physician Routine Consulting Provider: Anthony Mojica Consult Reason/Comments: abnormal ct scan Do you want consulting provider notified?: Yes Primary care physician: [place] [facility] Course: patient came into the hospital with a few day history of nausea vomiting and not feeling well she was hypotensive and tachycardic on arrival she has elevated lactic acid and leukocytosis of 18.2 patient after admission has been rehydrated, computed tomography scan of the abdomen revealed presence of small bowel enteritis, surgical services have a lactic evaluated the patient as the infectious disease services patient has been started on home medications as well as IV Zosyn tolerating well, patient evaluated by general surgery again and recommended for discharge will follow-up in outpatient antibiotics are being prescribed by infectious disease service with Augmentin for 7 days Patient Condition at Discharge: Good Plan - Discharge Summary Discharge Rx Participant: No New Discharge Prescriptions: New Amoxic-Pot Clav 875-125Mg [Augmentin 875-125] 1 tab PO BID 7 Days #14 tab No Action [facility] 03/19 1 tab PO HS Escitalopram [Lexapro] 20 mg PO HS QUEtiapine [SEROquel] 200 mg PO HS Prazosin HCl 2 mg PO HS Discharge Medication List Escitalopram [Lexapro] 20 mg PO 08/04/22 [History] [facility] 03/19 1 tab PO 08/04/22 [History] Prazosin HCl 2 mg PO HS 08/04/22 [History] QUEtiapine [SEROquel] 200 mg PO HS 08/04/22 [History] Amoxic-Pot Clav 875-125Mg [Augmentin 875-125] 1 tab PO BID 7 Days #14 tab 08/06/22 [Rx] Follow up Appointment(s)/Referral(s): Adin Lama MD [Primary Care Provider] - 1-2 days Anthony Mojica MD [STAFF PHYSICIAN] - 1 Week Activity/Diet/Wound Care/Special Instructions: PLEASE GIVE HER HOME MED BACK IN [facility] Discharge Disposition: HOME SELF-CARE
[2022-08-06 14:10] VITALS: BP 103/68; PULSE 99
--- NOTE | 2022-08-06 16:17 | P.PN ---
Subjective Progress Note Date: 08/06/22 Principal diagnosis: leukocytosis and entritis Patient is a 22-year-old female with no significant past medical history presenting to the ER for evaluation of abdominal pain , patient was noticed to have elevated white count CT abdomen and pelvis was suggestive of enteritis. On today's evaluation that is 08/06/2022, the patient remains to be afebrile, the patient did have resolution of epigastric abdominal pain the patient denies nausea no vomiting did have a formed bowel movement no chest pain shortness of breath or cough Objective - Vital Signs Vital signs: Vital Signs Temp 98.3 F 08/06/22 07:05 Pulse 104 H 08/06/22 07:05 Resp 14 08/06/22 08:56 BP 122/67 08/06/22 07:05 Pulse Ox 98 08/06/22 07:05 FiO2 Intake & Output 08/05/22 08/06/22 08/06/22 18:59 06:59 18:59 Weight 109.1 kg Other: # Voids 1 2 1 - Exam GENERAL DESCRIPTION: Young female lying in bed in no distress RESPIRATORY SYSTEM: Unlabored breathing , decreased breath sounds at bases HEART: S1 S2 regular rate and rhythm , ABDOMEN: Soft , no tenderness EXTREMITIES: No edema feet - Labs CBC & Chem 7: 08/06/22 07:25 08/06/22 07:25 Labs: Abnormal Lab Results - Last 24 Hours (Table) 08/06/22 Range/Units 07:25 Phosphorus 5.3 H (2.5-4.5) mg/dL Microbiology - Last 24 Hours (Table) 08/04/22 00:00 Blood Culture - Preliminary Blood 08/03/22 23:35 Blood Culture - Preliminary Blood Assessment and Plan (1) Leukocytosis Status: Acute Code(s): D72.829 - ELEVATED WHITE BLOOD CELL COUNT, UNSPECIFIED SNOMED Code(s): 665150215 (2) Enteritis Status: Acute Code(s): K52.9 - NONINFECTIVE GASTROENTERITIS AND COLITIS, UNSPECIFIED SNOMED Code(s): 49147715 Plan: 1patient is in the hospital with abdominal pain and nausea but no vomiting patient did not have any fever however did have elevated lactic acid and elevated white count CT abdominal pelvis concern for possible enteritis, we'll need to cover for the enteric gram-negative with a likely pathogen 2patient white count has normalized and abdominal symptoms have resolved, we will finish therapy with oral Augmentin and close outpatient follow-up prescription sent to the pharmacy Time with Patient: Less than 30
== END 2022-08-06 15:50 | disposition home or self-care (01) | DRG 872 ==
LOC: EC 20:19 → 3SCARD 08-04 00:13 → 4SSUR 08-04 07:13
PROVIDERS: ADMIT Family Medicine; ATTEND Family Medicine
DX: A41.9 Sepsis, unspecified organism (principal); E87.20 Acidosis, unspecified; K52.89 Other specified noninfective gastroenteritis and colitis; E66.01 Morbid (severe) obesity due to excess calories; F32.9 Major depressive disorder, single episode, unspecified; Z68.37 Body mass index [BMI] 37.0-37.9, adult
CPT/HCPCS: 36415; 74174; 80053; 81001; 82150; 83605; 83690; 83735; 84100; 84703; 85025; 85610; 85730; 87040; 96361; 96365; 96366; 96367; 96375; 99285

== ENCOUNTER → 2022-08-10 | Outpatient (CLI) | payer BC, OTHER ==
[2022-08-10 15:45] LABS: ALT 15 U/L (8-44); AST 13 U/L (13-35); Albumin 4.4 d/dL (3.8-4.9); Albumin/Globulin Ratio 1.52 Ratio (1.60-3.17); Alkaline Phosphatase 102 U/L (41-126); Blood Urea Nitrogen 9.2 mg/dL (9.0-27.0); Calcium 10.3 mg/dL (8.7-10.3); Chloride 101 mmol/L (96-109); Globulin 2.9 d/dL (1.6-3.3); Glucose 101 mg/dL (70-110); Potassium 4.2 mmol/L (3.5-5.5); Sodium 138 mmol/L (135-145); T4, Free (Free Thyroxine) 0.83 ng/dL (0.83-1.43); Total Bilirubin <0.2 mg/dL (0.3-1.2); Total Protein 7.3 d/dL (6.2-8.2)
[2022-08-10 15:57] LABS: Basophils # (A) 0.06 X 10*3/uL (0.00-0.10); Basophils % (A) 0.6 %; Eosinophils # (A) 0.13 X 10*3/uL (0.04-0.35); Eosinophils % (A) 1.2 %; HCT 39.1 % (37.2-46.3); HGB 12.3 d/dL (12.0-15.0); Lymphocytes # (A) 3.67 X 10*3/uL (0.90-5.00); MCH 27.5 pg (27.0-32.0); MCHC 31.5 d/dL (32.0-37.0); MCV 87.3 FL (80.0-97.0); Mean Platelet Volume 9.6 FL (9.5-12.2); Monocytes % (A) 5.6 %; NRBC Per 100 WBC 0 X 10*3/uL (0.00-0.01); Neutrophils # (A) 6.28 X 10*3/uL (1.80-7.70); Platelet Count 386 X 10*3/uL (140-440); RBC 4.48 X 10*6/uL (4.10-5.20); RDW 13.3 % (11.5-14.5); WBC 10.81 X 10*3/uL (4.50-10.00)
== END | disposition home or self-care (01) ==
LOC: LABWHC1 11:35
PROVIDERS: ATTEND Family Medicine
DX: Z00.00 Encounter for general adult medical examination without abnormal findings (principal); I10 Essential (primary) hypertension
CPT/HCPCS: 36415; 80053; 84439; 84443; 85025